=== PATIENT | male | born 1980 | race Caucasian/White ===

== ENCOUNTER 2017-04-21 16:42 | Emergency (ER) | payer OTHER | END 2017-04-21 18:26 | disposition home or self-care (01) | LOC: ER 16:42 | DX: Z76.0 Encounter for issue of repeat prescription (principal); R11.0 Nausea; F32.9 Major depressive disorder, single episode, unspecified; F41.9 Anxiety disorder, unspecified; F17.200 Nicotine dependence, unspecified, uncomplicated; Z88.0 Allergy status to penicillin; Z79.899 Other long term (current) drug therapy ==